=== PATIENT | female | born 1965 | race Two or more races ===

== ENCOUNTER 2017-05-09 10:46 | Emergency (ER) | payer MEDICARE, MEDICAID ==
--- NOTE | 2017-05-09 11:41 | ER Document Report ---
ED General - General Chief Complaint: Urinary Problem Stated Complaint: ABDOMINAL PAIN Time Seen by Provider: 05/09/17 11:24 Mode of Arrival: Ambulatory Information source: Patient Notes: 51-year-old female history of IgA deficiency presents with complaints of sinus tenderness nasal drainage as well as urinary symptoms. Patient believes she passed a kidney stone this morning. She notes she has had a kidney stone since she was 19. Patient denies any fevers or chills denies any nausea vomiting or diarrhea. Patient does note that it valdez after she is done urinating TRAVEL OUTSIDE OF THE [place] IN LAST 30 DAYS: No - HPI Onset: Other - 2-3 day duration Onset/Duration: Intermittent - Intermittent burning on urination, Persistent - Persistent sinus tenderness Quality of pain: Burning, Pressure Severity: Mild Pain Level: 1 Associated symptoms: Other Exacerbated by: Other - Urination Relieved by: Denies Similar symptoms previously: Yes Recently seen / treated by doctor: Yes - Related Data Allergies/Adverse Reactions: amoxicillin [From Augmentin] Allergy (Verified 05/09/17 10:50) baclofen Allergy (Verified 05/09/17 10:50) clavulanic acid [From Augmentin] Allergy (Verified 05/09/17 10:50) gabapentin Allergy (Verified 05/09/17 10:50) Home Medications: Current Home Medications Atorvastatin Calcium [Lipitor 40 mg Tablet] 40 mg PO DAILY 05/09/17 [History] Canagliflozin [Invokana] 1 tab PO QAM 05/09/17 [History] Cyclosporine 0.05% Oph Emulsio [Restasis 0.05% Oph Emulsion Pf 0.4 ml] 1 drop OU DAILY 05/09/17 [History] Hydroxychloroquine Sulfate [Plaquenil 200 mg Tablet] 300 mg PO DAILY 05/09/17 [ History] Metoprolol Succinate [Toprol Xl] 50 mg PO DAILY 05/09/17 [History] Nitroglycerin [Nitroglycerin Patch] 1 each TD DAILY 05/09/17 [History] Valacyclovir HCl [Valacyclovir] 1 tab PO DAILY 05/09/17 [History] Past Medical History - Social History Smoking Status: Never Smoker Cigarette use (# per day): No Chew tobacco use (# tins/day): No Smoking Education Provided: No Frequency of alcohol use: None Drug Abuse: None Family History: Reviewed & Not Pertinent Patient has suicidal ideation: No Patient has homicidal ideation: No - Past Medical History Cardiac Medical History: Reports: Hx Hypercholesterolemia, Hx Hypertension Endocrine Medical History: Reports: Hx Diabetes Mellitus Type 2 Renal/ Medical History: Denies: Hx Peritoneal Dialysis Musculoskeltal Medical History: Reports Hx Arthritis - rheumatoid Past Surgical History: Reports: Hx Cardiac Surgery - cabg, Hx Cholecystectomy, Hx Hysterectomy, Hx Orthopedic Surgery - frozen shoulder-surg to release Review of Systems - Review of Systems Notes: REVIEW OF SYSTEMS: CONSTITUTIONAL : Denies fever, chills, or sweats. Denies recent illness. EENT: Admits sinus tenderness CARDIOVASCULAR: Denies chest pain. Denies palpitations or racing or irregular heart beat. Denies ankle edema. RESPIRATORY: Denies cough, cold, or chest congestion. Denies shortness of breath, difficulty breathing, or wheezing. GASTROINTESTINAL: Denies abdominal pain or distention. Denies nausea, vomiting , or diarrhea. Denies blood in vomitus, stools, or per rectum. Denies black, tarry stools. Denies constipation. GENITOURINARY: Admits to burning on urination FEMALE GENITOURINARY: Denies vaginal bleeding, heavy or abnormal periods, irregular periods. Denies vaginal discharge or odor. MUSCULOSKELETAL: Denies back or neck pain or stiffness. Denies joint pain or swelling. SKIN: Denies rash, lesions or sores. HEMATOLOGIC : Denies easy bruising or bleeding. LYMPHATIC: Denies swollen, enlarged glands. NEUROLOGICAL: Denies confusion or altered mental status. Denies passing out or loss of consciousness. Denies dizziness or lightheadedness. Denies headache. Denies weakness or paralysis or loss of use of either side. Denies problems with gait or speech. Denies sensory loss, numbness, or tingling. Denies seizures. PSYCHIATRIC: Denies anxiety or stress. Denies depression, suicidal ideation, or homicidal ideation. ALL OTHER SYSTEMS REVIEWED AND NEGATIVE. PHYSICAL EXAMINATION: GENERAL: Well-appearing, well-nourished and in no acute distress. HEAD: Atraumatic, normocephalic. EYES: Pupils equal round and reactive to light, extraocular movements intact, conjunctiva are normal. ENT: Nares patent, oropharynx clear without exudates. Moist mucous membranes. There is no tenderness of the mastoid process there is some scarring of the tympanic membranes but no erythema, there is no retraction NECK: Normal range of motion, supple without lymphadenopathy LUNGS: Breath sounds clear to auscultation bilaterally and equal. No wheezes rales or rhonchi. HEART: Regular rate and rhythm without murmurs ABDOMEN: Soft, nontender, nondistended abdomen. No guarding, no rebound. No masses appreciated. Female : deferred Musculoskeletal: Normal range of motion, no pitting or edema. No cyanosis. NEUROLOGICAL: Cranial nerves grossly intact. Normal speech, normal gait. Normal sensory, motor exams PSYCH: Normal mood, normal affect. SKIN: Warm, Dry, normal turgor, no rashes or lesions noted. Dictation was performed using [employer] voice recognition software Physical Exam - Vital signs Vitals: Temp Pulse Resp BP Pulse Ox 98.5 F 76 16 117/80 98 05/09/17 11:03 05/09/17 11:03 05/09/17 11:03 05/09/17 11:03 05/09/17 11:03 Course - Re-evaluation Re-evalutation: 05/09/17 11:41 Probable UTI versus irritation from the stone passing otherwise patient looks well vital signs are stable 05/09/17 15:55 Patient does have a urinary tract infection, I discussed my concerns of infected stone, patient states she has no flank pain no fevers does not believe that she has an infected stone therefore at her request I will just treat her with Bactrim, I explained very strict return precautions as I have concern for an infected stone if symptoms do not improve After performing a Medical Screening Examination, I estimate there is LOW risk for ACUTE APPENDICITIS, BOWEL OBSTRUCTION, ACUTE CHOLECYSTITIS, PERFORATED DIVERTICULITIS, INCARCERATED HERNIA, PANCREATITIS, PELVIC INFLAMMATORY DISEASE, PERFORATED ULCER, ECTOPIC , or TUBO-OVARIAN ABSCESS, thus I consider the discharge disposition reasonable. Also, there is no evidence or peritonitis , sepsis, or toxicity. I have reevaluated this patient multiple times and no significant life threatening changes are noted. The patient and I have discussed the diagnosis and risks, and we agree with discharging home with close follow-up with the understanding that symptoms and presentations can change. We also discussed returning to the Emergency Department immediately if new or worsening symptoms occur. We have discussed the symptoms which are most concerning (e.g., bloody stool, fever, changing or worsening pain, vomiting) that necessitate immediate return. - Vital Signs Vital signs: Temp Pulse Resp BP Pulse Ox 97.5 F 65 16 108/62 100 05/09/17 12:01 05/09/17 12:01 05/09/17 12:01 05/09/17 12:01 05/09/17 12:01 - Laboratory Laboratory results interpreted by me: 05/09/17 11:05 Urine Glucose (UA) >=500 H Urine Blood SMALL H Ur Leukocyte Esterase MODERATE H Discharge - Discharge Clinical Impression: UTI (urinary tract infection) Qualifiers: Urinary tract infection type: acute cystitis Hematuria presence: without hematuria Qualified Code(s): N30.00 - Acute cystitis without hematuria Sinusitis Qualifiers: Sinusitis location: frontal Chronicity: acute Recurrence: non-recurrent Qualified Code(s): J01.10 - Acute frontal sinusitis, unspecified Condition: Stable Disposition: HOME, SELF-CARE Instructions: Trimethoprim-Sulfa ([facility]), Urinary Tract Infection ([facility]) Additional Instructions: Please return immediately if he began having fevers flank pain or any other concerns Prescriptions: Sulfamethoxazole/Trimethoprim [Bactrim Ds Tablet] 1 each PO BID 9 Days tablet
[2017-05-09 11:43] LABS: APPEARANCE,URINE CLEAR; BILIRUBIN,URINE NEGATIVE (NEGATIVE); GLUCOSE, URINE >=500 mg/dL (NEGATIVE); KETONES,URINE NEGATIVE (NEGATIVE); LEUKOCYTE ESTERASE,URINE MODERATE (NEGATIVE); NITRITE,URINE NEGATIVE (NEGATIVE); PROTEIN,URINE NEGATIVE (NEGATIVE); URINE SPECIFIC GRAVITY 1.026; UROBILINOGEN,URINE NEGATIVE mg/dL (<2.0)
[2017-05-09] MEDS ORDERED: SULFAMETHOXAZOLE/TRIMETHOPRIM 800-160 MG TABLET PO ONE (11:52)
[2017-05-09 12:05] VITALS: BP 108/62
== END 2017-05-09 12:02 | disposition home or self-care (01) ==
LOC: ER 10:46
DX: N30.00 Acute cystitis without hematuria (principal); J01.10 Acute frontal sinusitis, unspecified; I10 Essential (primary) hypertension; E11.9 Type 2 diabetes mellitus without complications; Z87.442 Personal history of urinary calculi; Z88.0 Allergy status to penicillin; Z88.6 Allergy status to analgesic agent; Z88.8 Allergy status to other drugs, medicaments and biological substances; Z95.1 Presence of aortocoronary bypass graft
CPT/HCPCS: 99284; 87086; 81025; 87088; 81001; 87186; A9270

== ENCOUNTER 2017-11-13 09:58 | Emergency (ER) | payer MEDICARE, MEDICAID ==
--- NOTE | 2017-11-13 10:31 | ER Document Report ---
ED Medical Screen (RME) - General Chief Complaint: Breathing Difficulty Stated Complaint: COUGH, EAR PAIN Time Seen by Provider: 11/13/17 10:23 Mode of Arrival: Ambulatory Information source: Patient Notes: 52-year-old female history of CABG presents with complaints of one-month duration of cough, chest wall pain after coughing sore throat hoarseness over the past few days with earache Patient denies any DVT PE risk factors, denies any fevers or chills Patient feels like there is drainage gone the back of her throat denies any productivity of cough I have greeted and performed a rapid initial assessment of this patient. A comprehensive ED assessment and evaluation of the patient, analysis of test results and completion of the medical decision making process will be conducted by additional ED providers. PHYSICAL EXAMINATION: GENERAL: Well-appearing, well-nourished and in no acute distress. HEAD: Atraumatic, normocephalic. EYES: Pupils equal round extraocular movements intact, conjunctiva are normal. ENT: Nares patent NECK: Normal range of motion LUNGS: No respiratory distress Musculoskeletal: Normal range of motion NEUROLOGICAL: Normal speech, normal gait. PSYCH: Normal mood, normal affect. SKIN: Warm, Dry, normal turgor, no rashes or lesions noted. TRAVEL OUTSIDE OF THE [place] IN LAST 30 DAYS: No - Related Data Allergies/Adverse Reactions: amoxicillin [From Augmentin] Allergy (Verified 11/13/17 10:25) baclofen Allergy (Verified 11/13/17 10:25) clavulanic acid [From Augmentin] Allergy (Verified 11/13/17 10:25) gabapentin Allergy (Verified 11/13/17 10:25) Past Medical History - Social History Chew tobacco use (# tins/day): No Frequency of alcohol use: None Drug Abuse: None - Past Medical History Cardiac Medical History: Reports: Hx Hypercholesterolemia, Hx Hypertension Endocrine Medical History: Reports: Hx Diabetes Mellitus Type 2 Renal/ Medical History: Denies: Hx Peritoneal Dialysis Musculoskeltal Medical History: Reports Hx Arthritis - rheumatoid Past Surgical History: Reports: Hx Cardiac Surgery - cabg, Hx Cholecystectomy, Hx Hysterectomy, Hx Orthopedic Surgery - frozen shoulder-surg to release Physical Exam - Vital signs Vitals: Temp Pulse Resp BP Pulse Ox 98.1 F 64 16 113/79 96 11/13/17 10:03 11/13/17 10:03 11/13/17 10:03 11/13/17 10:03 11/13/17 10:03 Course - Vital Signs Vital signs: Temp Pulse Resp BP Pulse Ox 98.1 F 64 16 113/79 96 11/13/17 10:03 11/13/17 10:03 11/13/17 10:03 11/13/17 10:03 11/13/17 10:03
--- NOTE | 2017-11-13 11:33 | RADIOLOGY REPORT (SQ) ---
EXAM DESCRIPTION: CHEST 2 VIEWS COMPLETED DATE/TIME: 11/13/2017 11:14 am REASON FOR STUDY: cough congestion 1 month COMPARISON: Two-view chest 03/18/2017 EXAM PARAMETERS: NUMBER OF VIEWS: two views TECHNIQUE: Digital Frontal and Lateral radiographic views of the chest acquired. RADIATION DOSE: NA LIMITATIONS: none FINDINGS: LUNGS AND PLEURA: No opacities, masses or pneumothorax. No pleural effusion. MEDIASTINUM AND HILAR STRUCTURES: No masses or contour abnormalities. HEART AND VASCULAR STRUCTURES: No cardiomegaly. Old sternotomy and CABG BONES: No acute findings. HARDWARE: Clips right upper quadrant post cholecystectomy OTHER: No other significant finding. IMPRESSION: NO ACUTE RADIOGRAPHIC FINDING IN THE CHEST. TECHNICAL DOCUMENTATION: JOB ID: [id number] [employer]- All Rights Reserved Reading location - IP/workstation name: [email or web address]
[2017-11-13] MEDS ORDERED: BENZONATATE 100 MG CAPSULE PO ONE (12:40)
[2017-11-13] MEDS ORDERED: LIDOCAINE 5% (700 MG) TRANSDERMAL ADH..PATCH TP ONE (12:40)
--- NOTE | 2017-11-13 12:49 | ER Document Report ---
ED General - General Chief Complaint: Breathing Difficulty Stated Complaint: COUGH, EAR PAIN Time Seen by Provider: 11/13/17 10:23 Mode of Arrival: Ambulatory TRAVEL OUTSIDE OF THE [place] IN LAST 30 DAYS: No - HPI Patient complains to provider of: Cough and difficulty breathing sinus congestion right ear pain Notes: Patient coming in with above-stated symptoms ongoing for almost a month. Patient states feels like something is in the inside of her right ear. Patient also states multiple sinus symptoms sinus congestion with sinus drainage patient states cough ongoing for approximately 1 month and now losing her voice. Patient is hoarse upon my evaluation patient states she does sleep with before meals and a fan on. Patient states she is tried [id number] Tylenol Sinus medications with no relief currently is on Zyrtec. Denies fevers chills production to cough nausea vomiting diarrhea. Patient denies any chest pain or abdominal pain. Patient denies any recent antibiotics patient states she does have a history of hypertension diabetes - Related Data Allergies/Adverse Reactions: amoxicillin [From Augmentin] Allergy (Verified 11/13/17 10:25) baclofen Allergy (Verified 11/13/17 10:25) clavulanic acid [From Augmentin] Allergy (Verified 11/13/17 10:25) gabapentin Allergy (Verified 11/13/17 10:25) Past Medical History - General Information source: Patient - Social History Smoking Status: Never Smoker Chew tobacco use (# tins/day): No Frequency of alcohol use: None Drug Abuse: None Family History: Reviewed & Not Pertinent Patient has suicidal ideation: No Patient has homicidal ideation: No - Past Medical History Cardiac Medical History: Reports: Hx Hypercholesterolemia, Hx Hypertension Endocrine Medical History: Reports: Hx Diabetes Mellitus Type 2 Renal/ Medical History: Denies: Hx Peritoneal Dialysis Musculoskeltal Medical History: Reports Hx Arthritis - rheumatoid Past Surgical History: Reports: Hx Cardiac Surgery - cabg, Hx Cholecystectomy, Hx Hysterectomy, Hx Orthopedic Surgery - frozen shoulder-surg to release Review of Systems - Review of Systems Constitutional: Other - Cough sinus pressure ear pain EENT: No symptoms reported Cardiovascular: No symptoms reported Respiratory: No symptoms reported Gastrointestinal: No symptoms reported Genitourinary: No symptoms reported Female Genitourinary: No symptoms reported Musculoskeletal: No symptoms reported Skin: No symptoms reported Hematologic/Lymphatic: No symptoms reported Neurological/Psychological: No symptoms reported Physical Exam - Vital signs Vitals: Temp Pulse Resp BP Pulse Ox 98.1 F 64 16 113/79 96 11/13/17 10:03 11/13/17 10:03 11/13/17 10:03 11/13/17 10:03 11/13/17 10:03 Interpretation: Normal - General General appearance: Appears well, Alert - HEENT Head: Normocephalic - Small cyst below the inion on the right no signs of abscess, Atraumatic Eyes: Normal Conjunctiva: Normal Cornea: Normal Extraocular movements intact: Yes Eyelashes: Normal Pupils: PERRL Ears: Normal External canal: Normal Tympanic membrane: Normal Sinus: Normal Nasal: Normal Mouth/Lips: Normal Pharynx: Post nasal drainage Neck: Normal - Respiratory Respiratory status: No respiratory distress Chest status: Nontender Breath sounds: Normal Chest palpation: Normal - Cardiovascular Rhythm: Regular Heart sounds: Normal auscultation Murmur: No - Abdominal Inspection: Normal Distension: No distension Bowel sounds: Normal Tenderness: Nontender Organomegaly: No organomegaly - Back Back: Normal, Nontender - Extremities General upper extremity: Normal inspection, Nontender, Normal color, Normal ROM , Normal temperature General lower extremity: Normal inspection, Nontender, Normal color, Normal ROM , Normal temperature, Normal weight bearing. No: Jemima's sign - Neurological Neuro grossly intact: Yes Cognition: Normal Orientation: AAOx4 Radha Coma Scale Eye Opening: Spontaneous [place] Coma Scale Verbal: Oriented [place] Coma Scale Motor: Obeys Commands Radha Coma Scale Total: 15 Speech: Normal Motor strength normal: LUE, RUE, LLE, RLE Sensory: Normal - Psychological Associated symptoms: Normal affect, Normal mood - Skin Skin Temperature: Warm Skin Moisture: Dry Skin Color: Normal Course - Re-evaluation Re-evalutation: 11/13/17 16:26 Patient with sinus symptoms and laryngitis. Explained to patient that treatment for laryngitis will be resting her voice and treatment of her sinus drainage. Continue the Zyrtec will start patient on Flonase. Patient was also given Tessalon Perles for cough also educated patient about use of honey for cough suppression. No critical pathology seen to patient discharged home - Vital Signs Vital signs: Temp Pulse Resp BP Pulse Ox 97.4 F 58 L 16 123/64 100 11/13/17 13:15 11/13/17 13:15 11/13/17 13:15 11/13/17 13:15 11/13/17 13:15 Discharge - Discharge Clinical Impression: Laryngitis, Allergic sinusitis Condition: Good Disposition: HOME, SELF-CARE Instructions: Laryngitis ([facility]), Nasal Sprays and Drops ([facility]) Additional Instructions: Your physical evaluation today is reveals slight nasal drainage more likely from seasonal allergies. Would recommend continue to take all of your medications. We will also add nasal spray to help out with your symptoms called Flonase. I would also recommend using honey for your cough did not sleep with a fan on in your bedroom. I also gave you a prescription for Tessalon Perles. This may aid in her cough as well He may also try any [id number] cough cold medication Please rest her voice you have laryngitis treatment involves controlling her seasonal allergies along with resting your vocal cords. Return to ER for any other symptoms follow-up with your primary care physician Prescriptions: Benzonatate [Tessalon Perle 100 mg Capsule] 100 mg PO Q8HP PRN #40 cap PRN Reason: Fluticasone Propionate [Flonase Nasal [place] 50 Mcg/[place] 16 gm] 1 spray NASL DAILY #1 inhaler
[2017-11-13 13:15] VITALS: BP 123/64
== END 2017-11-13 13:16 | disposition home or self-care (01) ==
LOC: ER 09:58
DX: J04.0 Acute laryngitis (principal); J30.9 Allergic rhinitis, unspecified; R05 Cough; R09.81 Nasal congestion; H92.01 Otalgia, right ear; R49.0 Dysphonia; I10 Essential (primary) hypertension; E11.9 Type 2 diabetes mellitus without complications
CPT/HCPCS: 99283; 87070; 87880; 71046; A9270

== ENCOUNTER 2018-11-21 19:05 | Emergency (ER) | payer MEDICARE, MEDICAID ==
[2018-11-21] MEDS ORDERED: ONDANSETRON HCL INJ/PF 4 MG/2 ML SDV IV ONE (19:58)
--- NOTE | 2018-11-21 19:59 | ER Document Report ---
ED Medical Screen (RME) - General Chief Complaint: Flank Pain Stated Complaint: BACK PAIN Time Seen by Provider: 11/21/18 19:53 Mode of Arrival: Ambulatory Notes: Patient presents complaining of vaginal pain lower pelvic and low back pain for the past 4 days. Patient reports fever of 101 yesterday. Patient reports nausea and vaginal discharge. Patient has had a total hysterectomy in the past. Patient states she is not been sexually active for 12 years. I have greeted and performed a rapid initial assessment of this patient. A comprehensive ED assessment and evaluation of the patient, analysis of test results and completion of the medical decision making process will be conducted by additional ED providers. TRAVEL OUTSIDE OF THE [place] IN LAST 30 DAYS: No - Related Data Allergies/Adverse Reactions: amoxicillin [From Augmentin] Allergy (Verified 11/21/18 19:19) baclofen Allergy (Verified 11/21/18 19:19) clavulanic acid [From Augmentin] Allergy (Verified 11/21/18 19:19) gabapentin Allergy (Verified 11/21/18 19:19) Past Medical History - Social History Frequency of alcohol use: None Drug Abuse: None - Past Medical History Cardiac Medical History: Reports: Hx Hypercholesterolemia, Hx Hypertension Endocrine Medical History: Reports: Hx Diabetes Mellitus Type 2 Renal/ Medical History: Denies: Hx Peritoneal Dialysis Musculoskeltal Medical History: Reports Hx Arthritis - rheumatoid Past Surgical History: Reports: Hx Cardiac Surgery - cabg, Hx Cholecystectomy, Hx Hysterectomy, Hx Orthopedic Surgery - frozen shoulder-surg to release Physical Exam - Vital signs Vitals: Temp Pulse Resp BP Pulse Ox 98.0 F 73 16 139/82 H 96 11/21/18 19:30 11/21/18 19:30 11/21/18 19:30 11/21/18 19:30 11/21/18 19:30 - Back Back: Tender - Lumbar paraspinal tenderness Course - Vital Signs Vital signs: Temp Pulse Resp BP Pulse Ox 98.0 F 73 16 139/82 H 96 11/21/18 19:30 11/21/18 19:30 11/21/18 19:30 11/21/18 19:30 11/21/18 19:30
[2018-11-21 20:43] LABS: ABSOLUTE EOSINOPHILS # (AUTO) 0.1 10^3/uL (0.0-0.6); ABSOLUTE LYMPHOCYTES (AUTO) 2.5 10^3/uL (0.5-4.7); ABSOLUTE MONOCYTES (AUTO) 0.5 10^3/uL (0.1-1.4); ABSOLUTE NEUT (AUTO) 3.4 10^3/uL (1.7-8.2); BASOPHILS % (AUTO) 0.7 % (0-2); EOSINOPHILS % (AUTO) 1.9 % (0-6); HEMATOCRIT 40.2 % (36.0-47.0); HEMOGLOBIN 13.5 g/dL (12.0-15.5); MEAN CORPUSCULAR HEMOGLOBIN 29.4 pg (27.0-33.4); MEAN CORPUSCULAR HGB CONC 33.6 g/dL (32.0-36.0); MEAN CORPUSCULAR VOLUME 88 fl (80-97); MONOCYTES % (AUTO) 7.4 % (3-13); PLATELET COUNT 343 10^3/uL (150-450); RED BLOOD COUNT 4.59 10^6/uL (3.72-5.28); RED CELL DISTRIBUTION WIDTH 13.9 % (11.5-14.0); TOTAL CELLS COUNTED % (AUTO) 100 %; WHITE BLOOD COUNT 6.6 10^3/uL (4.0-10.5)
[2018-11-21 20:47] LABS: APPEARANCE,URINE CLEAR; BILIRUBIN,URINE NEGATIVE (NEGATIVE); COLOR,URINE STRAW; GLUCOSE, URINE NEGATIVE (NEGATIVE); KETONES,URINE NEGATIVE (NEGATIVE); LEUKOCYTE ESTERASE,URINE NEGATIVE (NEGATIVE); NITRITE,URINE NEGATIVE (NEGATIVE); PROTEIN,URINE NEGATIVE (NEGATIVE); URINE SPECIFIC GRAVITY 1.012; UROBILINOGEN,URINE NEGATIVE mg/dL (<2.0)
[2018-11-21 21:03] LABS: ALANINE AMINOTRANSFERASE 27 U/L (9-52); ALBUMIN 4.7 g/dL (3.5-5.0); ALKALINE PHOSPHATASE 58 U/L (38-126); ANION GAP 10 (5-19); ASPARTATE AMINO TRANSFERASE 31 U/L (14-36); BILIRUBIN,DIRECT 0.3 mg/dL (0.0-0.4); BILIRUBIN,TOTAL 0.4 mg/dL (0.2-1.3); BLOOD UREA NITROGEN 15 mg/dL (7-20); CALCIUM 9.9 mg/dL (8.4-10.2); CARBON DIOXIDE 28 mmol/L (22-30); CHLORIDE 103 mmol/L (98-107); GLUCOSE 85 mg/dL (75-110); POTASSIUM 4.9 mmol/L (3.6-5.0); SODIUM 140.5 mmol/L (137-145); TOTAL PROTEIN 8.3 g/dL (6.3-8.2)
[2018-11-21 22:23] LABS: CHLAM PCR NOT DETECTED (NOT DETECT)
[2018-11-21] MEDS ORDERED: IBUPROFEN 600 MG TABLET PO ONE (22:39)
[2018-11-22 00:20] LABS: BACTERIA (WET MOUNT) 3+ BACTERIA SEEN; EPITHELIALS (WET MOUNT) 3+ EPITHELIALS SEEN; RBCS (WET MOUNT) RARE RBCS SEEN; T.VAGINALIS (WET MOUNT) NO TRICHOMONAS SEEN; WBCS (WET MOUNT) 1+ WBCS SEEN; YEAST (WET MOUNT) NO YEAST SEEN
--- NOTE | 2018-11-22 00:49 | ER Document Report ---
ED General - General Chief Complaint: Flank Pain Stated Complaint: BACK PAIN Time Seen by Provider: 11/21/18 19:53 Mode of Arrival: Ambulatory Information source: Patient TRAVEL OUTSIDE OF THE [place] IN LAST 30 DAYS: No - HPI Notes: Patient with a history of diabetes, hypercholesterolemia, coronary bypass surgery, cholecystectomy, hysterectomy 1987 related to endometriosis with bilateral oophorectomy and recurrent yeast infections presents with report of lower back pain with some vaginal fluid and mild nausea. The patient reports pelvic pain and questions having a fever previously. No constipation or diarrhea or chest pain or shortness of breath or cough or congestion or difficulty breathing. - Related Data Allergies/Adverse Reactions: amoxicillin [From Augmentin] Allergy (Verified 11/21/18 19:19) baclofen Allergy (Verified 11/21/18 19:19) clavulanic acid [From Augmentin] Allergy (Verified 11/21/18 19:19) gabapentin Allergy (Verified 11/21/18 19:19) Past Medical History - General Information source: Patient - Social History Smoking Status: Never Smoker Frequency of alcohol use: None Drug Abuse: None Lives with: Alone Family History: Reviewed & Not Pertinent Patient has suicidal ideation: No Patient has homicidal ideation: No - Past Medical History Cardiac Medical History: Reports: Hx Hypercholesterolemia, Hx Hypertension Endocrine Medical History: Reports: Hx Diabetes Mellitus Type 2 Renal/ Medical History: Denies: Hx Peritoneal Dialysis Musculoskeletal Medical History: Reports Hx Arthritis - rheumatoid Past Surgical History: Reports: Hx Cardiac Surgery - cabg, Hx Cholecystectomy, Hx Hysterectomy, Hx Orthopedic Surgery - frozen shoulder-surg to release Review of Systems - Review of Systems -: Yes All other systems reviewed and negative Physical Exam - Vital signs Vitals: Temp Pulse Resp BP Pulse Ox 98.0 F 73 16 139/82 H 96 11/21/18 19:30 11/21/18 19:30 11/21/18 19:30 11/21/18 19:30 11/21/18 19:30 - Notes Notes: PHYSICAL EXAMINATION: GENERAL: Well-appearing, well-nourished and in no acute distress. HEAD: Atraumatic, normocephalic. EYES: Pupils equal round and reactive to light, extraocular movements intact, conjunctiva are normal. ENT: Nares patent, oropharynx clear without exudates. Moist mucous membranes. NECK: Normal range of motion, supple without lymphadenopathy LUNGS: Breath sounds clear to auscultation bilaterally and equal. No wheezes rales or rhonchi. HEART: Regular rate and rhythm without murmurs ABDOMEN: Soft, nondistended abdomen. No guarding, no rebound. No masses appreciated. Mild tenderness appreciated through the lower midline pelvis region. surgical scars well-healed from previous hysterectomy. Female : External female genitalia hypo-estrogenized with minimal nonodorous discharge. No erythema or cellulitis or abscess. No lesions noted on speculum exam and no evidence for fistula or mass or other abnormality besides a mild discharge. Rectal exam no obvious bleeding or significant constipation. No fissure or abscess. Musculoskeletal: Normal range of motion, no pitting or edema. No cyanosis. NEUROLOGICAL: Cranial nerves grossly intact. Normal speech, normal gait. Normal sensory, motor exams PSYCH: Normal mood, normal affect. SKIN: Warm, Dry, normal turgor, no rashes or lesions noted. Course - Re-evaluation Re-evalutation: 11/22/18 01:27 Patient had mild evidence for UTI. She was given Bactrim and a urine culture was obtained. Patient showed evidence for bacterial vaginosis and will be covered with Flagyl. There is no obvious yeast infection noted. No evidence for diabetic complication or sepsis or systemic infection or GI bleed. - Vital Signs Vital signs: Temp Pulse Resp BP Pulse Ox 97.6 F 80 18 142/84 H 98 11/22/18 01:26 11/22/18 01:26 11/22/18 01:26 11/22/18 01:26 11/22/18 01:26 - Laboratory Result Diagrams: 11/21/18 20:15 11/21/18 20:15 Laboratory results interpreted by me: 11/21/18 20:15 Total Protein 8.3 H Discharge - Discharge Clinical Impression: Bacterial vaginosis Urinary tract infection Qualifiers: Urinary tract infection type: acute cystitis Hematuria presence: without hematuria Qualified Code(s): N30.00 - Acute cystitis without hematuria Condition: Stable Disposition: HOME, SELF-CARE Instructions: Trimethoprim-Sulfa ([facility]), Urinary Tract Infection ([facility]), Vaginosis, Bacterial ([facility]) Additional Instructions: Drink plenty of fluids. Watch your blood sugars closely. If you feel you are having a yeast infection, then take the fluconazole. Prescriptions: Ibuprofen [Motrin 600 mg Tablet] 600 mg PO Q8HP PRN #30 tablet PRN Reason: Ondansetron [Zofran Odt 4 mg Tablet] 1 tab PO Q8HP PRN #10 tab.rapdis PRN Reason: For Nausea/Vomiting Fluconazole [Diflucan] 150 mg PO ONCEP PRN #1 tablet PRN Reason: Metronidazole [Flagyl 500 mg Tablet] 500 mg PO BID #14 tablet Sulfamethoxazole/Trimethoprim [Bactrim Ds Tablet] 1 each PO BID #10 tablet
[2018-11-22] MEDS ORDERED: SULFAMETHOXAZOLE/TRIMETHOPRIM 800-160 MG TABLET PO ONE (01:23)
[2018-11-22] MEDS ORDERED: METRONIDAZOLE 500 MG TABLET PO ONE (01:24)
[2018-11-22 01:27] VITALS: BP 142/84
== END 2018-11-22 01:44 | disposition home or self-care (01) ==
LOC: ER 19:05
DX: N30.00 Acute cystitis without hematuria (principal); N76.0 Acute vaginitis; B96.89 Other specified bacterial agents as the cause of diseases classified elsewhere; R10.9 Unspecified abdominal pain; M54.9 Dorsalgia, unspecified; E11.9 Type 2 diabetes mellitus without complications; M54.5 Low back pain; R11.0 Nausea; R10.2 Pelvic and perineal pain; I10 Essential (primary) hypertension
CPT/HCPCS: 99284; 96374; 36415; 87086; 87210; 85025; 80053; 81001; 87491; 87591; A9270 ×3; J2405

== ENCOUNTER 2019-02-03 11:16 | Emergency (ER) | payer MEDICARE, MEDICAID ==
[2019-02-03] MEDS ORDERED: ONDANSETRON 4 MG TAB.RAPDIS PO ONE (11:26)
--- NOTE | 2019-02-03 11:32 | ER Document Report ---
ED Medical Screen (RME) - General Chief Complaint: Headache Stated Complaint: HEARING PROBLEM Time Seen by Provider: 02/03/19 11:26 Mode of Arrival: Wheelchair Information source: Patient Notes: This patient presents to the emergency department with complaints of congestion in both ears. Woke up this morning with left ear pain and cannot hear. Reports she feels nauseated and dizzy. Denies trauma to her ear. Patient is very emotional very anxious. I have greeted and performed a rapid initial assessment of this patient. A comprehensive ED assessment and evaluation of the patient, analysis of test results and completion of the medical decision making process will be conducted by additional ED providers. Dictation of this chart was performed using voice recognition software; there fore, there may be some unintended grammatical errors. TRAVEL OUTSIDE OF THE [place] IN LAST 30 DAYS: No - Related Data Allergies/Adverse Reactions: amoxicillin [From Augmentin] Allergy (Verified 11/21/18 19:19) baclofen Allergy (Verified 11/21/18 19:19) clavulanic acid [From Augmentin] Allergy (Verified 11/21/18 19:19) gabapentin Allergy (Verified 11/21/18 19:19) Past Medical History - Past Medical History Cardiac Medical History: Reports: Hx Hypercholesterolemia, Hx Hypertension Endocrine Medical History: Reports: Hx Diabetes Mellitus Type 2 Renal/ Medical History: Denies: Hx Peritoneal Dialysis Musculoskeltal Medical History: Reports Hx Arthritis - rheumatoid Past Surgical History: Reports: Hx Cardiac Surgery - cabg, Hx Cholecystectomy, Hx Hysterectomy, Hx Orthopedic Surgery - frozen shoulder-surg to release
[2019-02-03 12:08] LABS: ABSOLUTE EOSINOPHILS # (AUTO) 0.1 10^3/uL (0.0-0.6); ABSOLUTE LYMPHOCYTES (AUTO) 1.8 10^3/uL (0.5-4.7); ABSOLUTE MONOCYTES (AUTO) 0.4 10^3/uL (0.1-1.4); ABSOLUTE NEUT (AUTO) 4.2 10^3/uL (1.7-8.2); BASOPHILS % (AUTO) 0.4 % (0-2); EOSINOPHILS % (AUTO) 1.2 % (0-6); HEMATOCRIT 41.3 % (36.0-47.0); HEMOGLOBIN 13.9 g/dL (12.0-15.5); LYMPHOCYTES % (AUTO) 28.2 % (13-45); MEAN CORPUSCULAR HEMOGLOBIN 29.8 pg (27.0-33.4); MEAN CORPUSCULAR HGB CONC 33.7 g/dL (32.0-36.0); MEAN CORPUSCULAR VOLUME 88 fl (80-97); MONOCYTES % (AUTO) 6.5 % (3-13); PLATELET COUNT 312 10^3/uL (150-450); RED BLOOD COUNT 4.67 10^6/uL (3.72-5.28); RED CELL DISTRIBUTION WIDTH 13.1 % (11.5-14.0); SEGMENTED NEUTROPHILS % (AUTO) 63.7 % (42-78); TOTAL CELLS COUNTED % (AUTO) 100 %; WHITE BLOOD COUNT 6.5 10^3/uL (4.0-10.5)
[2019-02-03 12:18] LABS: ALBUMIN 4.5 g/dL (3.5-5.0); ALKALINE PHOSPHATASE 69 U/L (38-126); ANION GAP 10 (5-19); ASPARTATE AMINO TRANSFERASE 26 U/L (14-36); BILIRUBIN,DIRECT 0.1 mg/dL (0.0-0.4); BILIRUBIN,TOTAL 0.4 mg/dL (0.2-1.3); BLOOD UREA NITROGEN 17 mg/dL (7-20); CALCIUM 9.8 mg/dL (8.4-10.2); CARBON DIOXIDE 26 mmol/L (22-30); CHLORIDE 102 mmol/L (98-107); CREATINE KINASE 131 U/L (30-135); GLUCOSE 117 mg/dL (75-110); POTASSIUM 4.4 mmol/L (3.6-5.0); TOTAL PROTEIN 7.8 g/dL (6.3-8.2)
[2019-02-03] MEDS ORDERED: DOCUSATE SODIUM 100 MG CAPSULE LFT_EAR ONE (12:31)
[2019-02-03] MEDS ORDERED: BUTALB/ACETAMINOPHEN/CAFFEINE 1 TAB EACH PO ONE (12:40)
[2019-02-03] MEDS ORDERED: DOXYCYCLINE HYCLATE 100 MG TABLET PO ONE (12:40)
--- NOTE | 2019-02-03 13:30 | ER Document Report ---
ED General - General Chief Complaint: Headache Stated Complaint: HEARING PROBLEM Time Seen by Provider: 02/03/19 11:26 Mode of Arrival: Wheelchair TRAVEL OUTSIDE OF THE [place] IN LAST 30 DAYS: No - HPI Notes: This is a 53-year-old female who presents today with a complaint of sinus congestion, sneezing, rhinorrhea, ear ache and difficulty hearing out of the left ear. Patient states her symptoms have been going for about a week. Patient states that her ears feel full and hurt. She states that this morning, she was having trouble hearing out of the left ear. She also describes slight dizziness. Patient states that the ear ache makes the side of her head to hurt also. She denies any fever or chills. She denies any neck pain or stiffness. She describes her symptoms as moderate. There are no obvious aggravating or relieving factors. - Related Data Allergies/Adverse Reactions: amoxicillin [From Augmentin] Allergy (Verified 11/21/18 19:19) baclofen Allergy (Verified 11/21/18 19:19) clavulanic acid [From Augmentin] Allergy (Verified 11/21/18 19:19) gabapentin Allergy (Verified 11/21/18 19:19) Past Medical History - General Information source: Patient - Social History Smoking Status: Never Smoker Frequency of alcohol use: None Drug Abuse: None Family History: Reviewed & Not Pertinent Patient has suicidal ideation: No Patient has homicidal ideation: No - Past Medical History Cardiac Medical History: Reports: Hx Hypercholesterolemia, Hx Hypertension Endocrine Medical History: Reports: Hx Diabetes Mellitus Type 2 Renal/ Medical History: Denies: Hx Peritoneal Dialysis Musculoskeletal Medical History: Reports Hx Arthritis - rheumatoid Past Surgical History: Reports: Hx Cardiac Surgery - cabg, Hx Cholecystectomy, Hx Hysterectomy, Hx Orthopedic Surgery - frozen shoulder-surg to release Review of Systems - Review of Systems EENT: Ear pain, Nose pain, Nose congestion, Sinus pressure, Sinus discharge, Vertigo Cardiovascular: denies: Chest pain Gastrointestinal: denies: Abdominal pain, Diarrhea, Nausea -: Yes All other systems reviewed and negative Physical Exam - Vital signs Vitals: Temp Pulse Resp BP Pulse Ox 97.8 F 95 18 151/107 H 100 02/03/19 11:22 02/03/19 11:22 02/03/19 11:22 02/03/19 11:22 02/03/19 11:22 - General General appearance: Appears well, Alert - HEENT Head: Normocephalic, Atraumatic Eyes: Normal Pupils: PERRL External canal: Normal Tympanic membrane: Bulging - There is bulging and slight erythema of the left ear canal/tm. There appears to be either wax or simply swelling which is obstructing the tympanic membranes. I do not see any foreign body. I tried to clean with Q-tip but did not get any wax. So I think this might be an inflammatory process going on which is causing obstruction hence loss of urine on the left ear. Sinus: Tenderness - There is paranasal sinus tenderness. - Respiratory Respiratory status: No respiratory distress Chest status: Nontender Breath sounds: Normal Chest palpation: Normal - Cardiovascular Rhythm: Regular Heart sounds: Normal auscultation Murmur: No - Skin Skin Temperature: Warm Skin Moisture: Dry Skin Color: Normal Course - Re-evaluation Re-evalutation: 02/03/19 13:30 Clinical picture is consistent with sinusitis and probable left otitis media. Nurses were unable to irrigate anything out of the left ear. I do not think there was cerumen impaction. I think this is likely inflammatory and infectious. We will refer her to ENT. There is no clinical suspicion for intracranial pathology. There is no indication for imaging. - Vital Signs Vital signs: Temp Pulse Resp BP Pulse Ox 97.8 F 95 18 151/107 H 100 02/03/19 11:22 02/03/19 11:22 02/03/19 11:22 02/03/19 11:22 02/03/19 11:22 - Laboratory Result Diagrams: 02/03/19 11:50 02/03/19 11:50 Laboratory results interpreted by me: 02/03/19 11:50 Glucose 117 H Discharge - Discharge Clinical Impression: Acute bacterial sinusitis, Otalgia of both ears Left ear hearing loss Qualifiers: Hearing loss type: unspecified Qualified Code(s): H91.92 - Unspecified hearing loss, left ear Condition: Good Disposition: HOME, SELF-CARE Instructions: Sinusitis ([facility]), Otitis Media ([facility]) Prescriptions: Doxycycline Monohydrate 100 mg PO BID #20 capsule Butalb/Acetaminophen/Caffeine [Fioricet 50-300-40 mg Capsule] 1 cap PO Q4 PRN #20 cap PRN Reason: for pain Referrals: EMILY WARREN DO [ASSOCIATE] - (Call on Tuesday to schedule appointment)
[2019-02-03 14:17] VITALS: BP 142/81
[2019-02-03 14:26] LABS: APPEARANCE,URINE CLEAR; BILIRUBIN,URINE NEGATIVE (NEGATIVE); COLOR,URINE STRAW; GLUCOSE, URINE NEGATIVE (NEGATIVE); KETONES,URINE NEGATIVE (NEGATIVE); LEUKOCYTE ESTERASE,URINE NEGATIVE (NEGATIVE); NITRITE,URINE NEGATIVE (NEGATIVE); PROTEIN,URINE NEGATIVE (NEGATIVE); URINE SPECIFIC GRAVITY 1.008; UROBILINOGEN,URINE NEGATIVE mg/dL (<2.0)
--- NOTE | 2019-02-03 22:11 | EKG REPORT ---
SEVERITY:- NORMAL ECG - SINUS RHYTHM : Confirmed by: Fermin Arenas MD 03-Feb-2019 22:10:07
== END 2019-02-03 14:25 | disposition home or self-care (01) ==
LOC: ER 11:16
DX: J01.10 Acute frontal sinusitis, unspecified (principal); B96.89 Other specified bacterial agents as the cause of diseases classified elsewhere; H91.92 Unspecified hearing loss, left ear; H92.03 Otalgia, bilateral; R09.81 Nasal congestion; R06.7 Sneezing; J34.89 Other specified disorders of nose and nasal sinuses; R42 Dizziness and giddiness; I10 Essential (primary) hypertension; E11.9 Type 2 diabetes mellitus without complications; Z88.0 Allergy status to penicillin; Z88.6 Allergy status to analgesic agent; Z88.8 Allergy status to other drugs, medicaments and biological substances
CPT/HCPCS: 93005; 36415; 82550; 85025; 80053; 81001; 93010; A9270 ×4; 99284; J3490; S0119

== ENCOUNTER → 2019-02-08 | Outpatient (CLI) | payer MEDICARE, MEDICAID ==
--- NOTE | 2019-02-08 11:45 | RADIOLOGY REPORT (SQ) ---
EXAM DESCRIPTION: CT SINUSES FOR ENT COMPLETED DATE/TIME: 02/08/2019 11:00 am REASON FOR STUDY: ACUTE RECURRENT SINUSITIS (J01.91) J01.91 ACUTE RECURRENT SINUSITIS, UNSPECIFIED COMPARISON: None. TECHNIQUE: Noncontrast scanning through the paranasal sinuses using bone algorithm. Reconstructed MPR images reviewed. All images stored on PACS. All CT scanners at this facility use dose modulation, iterative reconstruction, and/or weight based d osing when appropriate to reduce radiation dose to as low as reasonably achievable (ALARA). [facility]: Dose Right [facility]: CareDose [facility]: Dose Right [facility]: Teradose 4D [facility]: Smart Inaika RADIATION DOSE: CT Rad equipment meets quality standard of care and radiation dose reduction techniq ues were employed. CTDIvol: 47.0 mGy. DLP: 1024 mGy-cm.mGy. LIMITATIONS: None. FINDINGS: Right sinuses and drainage pathways: Post-surgical changes: None. Frontal sinus: Normal. Frontoethmoidal Recess: Normal. Anterior Ethmoid Sinuses: Normal. Posterior Ethmoid Sinuses: Normal. Sphenoid Sinus: Normal. Sphenoethmoidal Recess: Normal. Maxillary Sinus: Diffusely small developmentally. Ostiomeatal Complex: Under developed medial wall right maxillary sinus, with patent maxillary sinus outlet. None developed uncinate process right maxillary sinus. Mucous membrane thickening right lat eral wall and floor of the maxillary sinus. This is best shown on coronal images 118-138. Left Sinuses and Drainage Pathways: Post-Surgical Changes: None. Frontal Sinus: Normal. Frontoethmoidal Recess: Normal. Anterior Ethmoid Sinuses: Normal. Posterior Ethmoid Sinuses: Normal. Sphenoid Sinus: Normal. Sphenoethmoidal Recess: Normal. Maxillary Sinus: Normal. Ostiomeatal Complex: Normal. Right Olfactory Fossa: No polyps. Left Olfactory Fossa: No polyps. Middle Turbinate Marguerite Bullosa: No. Paradoxical Middle Turbinate: No. Atelectatic Uncinated Process: No. Frontal Imelda Cell Type I: No. Frontal Imelda Cell Type II: No. Interfrontal Sinus Septal Cell: None. Suptra-Orbital Ethmoid: None Frontal Bullar Cell: None. Suprabullar Bullar Cell: None. Sphenoethmoidal ([place]) Cell: None. Pneumatization of the Anterior Clinoid Processes: No Hypoplastic Maxillary Sinus: On the right Osteoneogenesis: None. Bone Dehiscence:None. Nasal Cavity: Normal. Nasal Septum: Midline Anatomic Variants: Right Vidian Canal: Normal. Left Vidian Canal: Normal. 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 Patent right maxillary sinus outlet with non development of the uncinate process TECHNICAL DOCUMENTATION: JOB ID: [id number] Quality ID # [id number]: Final reports with documentation of one or more dose reduction techniques (e.g., Au tomated exposure control, adjustment of the mA and/or kV according to patient size, use of iterative reconstruction technique) 2010 [employer]- All Rights Reserved Reading location - IP/workstation name: [email or web address]
== END ==
LOC: RAD 10:00
PROVIDERS: ATTEND Otolaryngology
DX: J01.91 Acute recurrent sinusitis, unspecified (principal)
CPT/HCPCS: 70486

== ENCOUNTER → 2019-02-08 | Outpatient (CLI) | payer MEDICARE, MEDICAID | LOC: OD 09:28 | PROVIDERS: ATTEND Otolaryngology | DX: J30.9 Allergic rhinitis, unspecified (principal) | CPT/HCPCS: 36415; 82785; 86003 ==

== ENCOUNTER 2019-12-17 12:25 | Emergency (ER) | payer MEDICARE, MEDICAID ==
[2019-12-17 12:55] VITALS: BP 152/91
--- NOTE | 2019-12-17 13:55 | ER Document Report ---
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 Reports some numbness and tingling in this region. Reports approximately a week ago she cut the anterior portion of the left lower leg while shaving did develop some bruising around this which is slowly resolving. She specifically denies calf pain no chest pain shortness of breath. She has not had any fevers. ROS: See HPI - all other systems were reviewed and are otherwise negative Constitutional: no fever Eyes: no drainage, no blurred vision ENT: no runny nose, no sore throat Cardiovascular: no chest pain Resp: no SOB, no cough GI: no vomiting, no diarrhea, no abdominal pain : no dysuria Integumentary: no rash Allergy: no hives Musculoskeletal: + extremity pain or swelling Neurological: no numbness/tingling, no weakness MEDICATIONS: I agree with the patient medications as charted by the RN. ALLERGIES: I agree with the allergies as charted by the RN. PAST MEDICAL HISTORY/PAST SURGICAL HISTORY: Reviewed and agree as charted by RN. SOCIAL HISTORY: Reviewed and agree as charted by RN. FAMILY HISTORY: No significant familial comorbid conditions directly related to patient complaint EXAM: Reviewed vital signs as charted by RN. CONSTITUTIONAL: Alert and oriented and responds appropriately to questions. Well-appearing; well-nourished HEAD: Normocephalic; atraumatic EYES: Conjunctivae clear, sclerae non-icteric ENT: normal nose; no rhinorrhea; moist mucous membranes NECK: Supple without meningismus CARD: symmetric distal pulses RESP: Normal chest excursion without splinting or tachypnea ABD/GI: non-distended. BACK: The back appears normal EXT: Normal ROM in all joints; no cyanosis, no effusions, no edema. Mild tenderness through the left gluteal region into the lateral aspect of the left thigh and lateral left calf. No visible swelling of the leg SKIN: Normal color for age and race; warm; dry; good turgor; there is a small bruised area with a small cut that does not have any cellulitic plant changer the anterior left lower leg. NEURO: Moves all extremities equally; Motor and sensory function intact PSYCH: The patient's mood and manner are appropriate. Grooming and personal hygiene are appropriate. MDM: 54-year-old female with what appears to be sciatic symptoms. I do not be lieve this is related to the cut she had on the anterior portion of the leg a week ago. There is no cellulitic changes suggest need for infection at this time. Patient has no saddle anesthesia suggesting cauda equina. Discussed at length with the patient. Did offer imaging and labs but patient would prefer treatment with a course of Decadron and will follow up with orthopedics return if symptoms worsen - REPRODUCTIVE Reproductive: DENIES: : Past Medical History - Social History Smoking Status: Never Smoker Chew tobacco use (# tins/day): No Frequency of alcohol use: None Drug Abuse: None Family History: Reviewed & Not Pertinent Patient has homicidal ideation: No - Past Medical History Cardiac Medical History: Reports: Hx Hypercholesterolemia, Hx Hypertension Endocrine Medical History: Reports: Hx Diabetes Mellitus Type 2 Renal/ Medical History: Denies: Hx Peritoneal Dialysis Musculoskeletal Medical History: Reports Hx Arthritis - rheumatoid Past Surgical History: Reports: Hx Cardiac Surgery - cabg, Hx Cholecystectomy, Hx Hysterectomy, Hx Orthopedic Surgery - frozen shoulder-surg to release Vertical Provider Document - INFECTION CONTROL TRAVEL OUTSIDE OF THE [place] IN LAST 30 DAYS: No Course - Vital Signs Vital signs: Temp Pulse Resp BP Pulse Ox 98.6 F 86 16 152/91 H 96 12/17/19 12:48 12/17/19 12:48 12/17/19 12:48 12/17/19 12:48 12/17/19 12:48 Discharge - Discharge Clinical Impression: Sciatica, left side Condition: Stable Disposition: HOME, SELF-CARE Instructions: Sciatica ([facility]) Additional Instructions: Take the Decadron as prescribed. Follow-up with both your primary care provider and orthopedics for further evaluation and treatment call for appointment. If y ou develop worsening or uncontrolled pain swelling of the leg or fever return for reevaluation Prescriptions: Dexamethasone [Decadron 4 Mg Tablet] 4 mg PO DAILY #7 tablet Referrals: EMILY WARREN DO [Primary Care Provider] - Follow up as needed ROBERTO MATHEWS DO [ACTIVE STAFF] - Follow up as needed
== END 2019-12-17 14:06 | disposition home or self-care (01) ==
LOC: ER 12:25
DX: M54.32 Sciatica, left side (principal); M25.552 Pain in left hip; M79.605 Pain in left leg; E78.00 Pure hypercholesterolemia, unspecified; I10 Essential (primary) hypertension; E11.9 Type 2 diabetes mellitus without complications; Z95.1 Presence of aortocoronary bypass graft
CPT/HCPCS: 99283

== ENCOUNTER → 2019-12-17 | Outpatient (CLI) | payer MEDICARE, MEDICAID ==
[2019-12-17 15:25] VITALS: BP 141/80
--- NOTE | 2019-12-17 15:25 | ER RDC ASSESSMENT REPORT ---
Intake - In the Last 14 days Have you traveled outside [place]?: No Have you been in close contact with someone CONFIRMED: No Worked in Healthcare?: No - Symptoms Subjective Fever([place]urgess feverish): No Chills: No Muscule Aches: No Runny Nose: Yes Sore Throat: No Cough (New or worsening chronic cough): Yes Shortness of breath: No Nausea or Vomiting: Yes Headache: Yes Abdominal Pain: Yes Diarrhea(3 or more loose stools in last 24 hours): Yes - Do you have any of the following Chronic lung disease: Asthma or emphysema or COPD: No Cystic Fibrosis: No Diabetes: Yes High Blood Pressure: Yes Cardiovascular Disease: Yes Chronic Kidney Disease: No Chronic Liver Disease: No Chronic blood disorder like Sickle Cell Disease: No Weak immune system due to disease or medication: Yes Neurologic condition that limits movement: No Developmental delay - Moderate to Severe: No Recent (within past 2 weeks) or current : No Morbid Obesity (>100 pounds over ideal weight): No - Objective Temperature: 96.5 F Pulse Rate: 86 Respiratory Rate: 14 Blood Pressure: 141/80 O2 Sat by Pulse Oximetry: 99 Objective: Given above, testing performed: covid Disposition: Home; Selfcare General - General Chief Complaint: Other Time Seen by Provider: 12/17/19 14:50 Mode of Arrival: Ambulatory Information source: Patient - HPI Notes: 54-year-old female presents to [facility] clinic for COVID-19 testing. Patient reports no known exposure to COVID-19 positive individual. She does have a significant medical history of type 2 diabetes, rheumatoid arthritis, and previous open heart surgery for coronary anomaly. Patient had does have some mild symptoms but believes it may be related more to seasonal allergies. She is currently complaining of runny nose and occasional cough. She does report some GI upset that occurred several weeks ago but has since resolved. She is denying any fever, chills, muscle ache, sore throat, shortness of breath, or GI upset at this time. - Related Data Allergies/Adverse Reactions: clavulanic acid [From Augmentin] Allergy (Severe, Verified 12/17/19 13:34) VOMITING baclofen Allergy (Verified 12/17/19 13:34) Hallucinations gabapentin Allergy (Verified 12/17/19 13:34) Hallucinations amoxicillin [From Augmentin] Adverse Reaction (Severe, Verified 12/17/19 13:34) VOMITING Past Medical History - General Information source: Patient - Social History Smoking Status: Never Smoker Family History: Reviewed & Not Pertinent - Past Medical History Cardiac Medical History: Reports: Hx Hypercholesterolemia, Hx Hypertension, Other Pulmonary Medical History: Reports: None EENT Medical History: Reports: None Neurological Medical History: Reports: None Endocrine Medical History: Reports: Hx Diabetes Mellitus Type 2 Renal/ Medical History: Reports: None. Denies: Hx Peritoneal Dialysis Malignancy Medical History: Reports: None GI Medical History: Reports: None Musculoskeletal Medical History: Reports Hx Arthritis - rheumatoid Skin Medical History: Reports None Psychiatric Medical History: Reports: None Traumatic Medical History: Reports: None Infectious Medical History: Reports: None Past Surgical History: Reports: Hx Cardiac Surgery - cabg, Hx Cholecystectomy, Hx Hysterectomy, Hx Orthopedic Surgery - frozen shoulder-surg to release Physical Exam - General General appearance: Appears well, Alert In distress: None Notes: PHYSICAL EXAMINATION: GENERAL: Well-appearing and in no acute distress. HEAD: Atraumatic, normocephalic. EYES: sclera anicteric, conjunctiva are normal. ENT: nares patent. Moist mucous membranes. NECK: Normal range of motion, supple without lymphadenopathy. LUNGS: No increased work of breathing. Lung sounds CTAB and equal. No wheezes rales or rhonchi. HEART: Regular rate and rhythm without murmurs. ABDOMEN: Soft, nontender, normal bowel sounds, no guarding. EXTREMITIES: Normal range of motion, no pitting edema. No cyanosis. NEUROLOGICAL: A&O x 3. Normal speech. PSYCH: Normal mood, normal affect. SKIN: Warm, Dry, normal turgor, no rashes or lesions noted Diagnostic Results Laboratory Results: COVID-19 pending Patient Education/Counseling Counseling/Education: Patient presents with symptoms associated with possible Covid 19 infection. Patient does not have emergency worrying symptoms such as difficulty breathing, shortness of breath, chest pain, pressure, confusion or cyanosis. Patient appears suitable for discharge as vital signs are stable and patient is nontoxic in appearance. Good return precautions have been discussed with patient, patient verbalized understanding and is agreeable with discharge plan of care at this time. Guidance for worsening S/SX: As a person under investigation for Covid 19, the [facility] of Health and Human Services, division of public health advises you to adhere to the following guidance until your test results are reported to you. If your test result is positive, you will receive additional information from your provider and your local health department at that time. Remain at home until you are cleared by the health provider or public health authorities. Keep a log of visitors to your home, notify any visitors to your home of your isolation status. If you plan to move to a new address or leave the county, notify the local health department in your County. Call your doctor or seek care if you have an urgent medical need. Before seeking medical care, call ahead to get instructions from the provider before arriving at the medical office clinic or hospital. Notify them that you are being tested for the virus that causes Covid 19 so that arrangements can be made, as necessary, to prevent transmission to others in the healthcare setting. Next, notify the local health department in your county. If a medical emergency arises and you need to call 911, inform the first responders that you are being tested for the virus that causes Covid 19. Next, notify the local health department in your county. RDC Discharge - Discharge Clinical Impression: Encounter for screening laboratory testing for COVID-19 virus Condition: Good Disposition: Home; Selfcare -
== END ==
LOC: RDC 14:18
PROVIDERS: ATTEND Registered Nurse
DX: Z20.828 Contact with and (suspected) exposure to other viral communicable diseases (principal); R05 Cough; R09.89 Other specified symptoms and signs involving the circulatory and respiratory systems; R11.0 Nausea; R51 Headache; R10.9 Unspecified abdominal pain; R19.7 Diarrhea, unspecified; I10 Essential (primary) hypertension; E78.00 Pure hypercholesterolemia, unspecified; E11.9 Type 2 diabetes mellitus without complications; M06.9 Rheumatoid arthritis, unspecified; Z88.1 Allergy status to other antibiotic agents; Z88.6 Allergy status to analgesic agent; Z88.8 Allergy status to other drugs, medicaments and biological substances
CPT/HCPCS: U0003; C9803; 87635

== ENCOUNTER 2020-03-07 16:53 | Emergency (ER) | payer MEDICARE, MEDICAID ==
--- NOTE | 2020-03-07 17:23 | ER Document Report ---
ED Medical Screen (RME) - General Chief Complaint: Vaginal Discharge Stated Complaint: VAGINAL PROBLEM Time Seen by Provider: 03/07/20 17:16 Primary Care Provider: CHARLES MAHARAJ [Primary Care Provider] - Follow up as needed Mode of Arrival: Ambulatory Information source: Patient Notes: HPI; 54-year-old female presents emergency room complaining of vaginal discharge and vaginal pain with burning for the past week. Patient states she had a bout of diarrhea approximately 2 weeks ago that she had cleaned herself well but is concerned that some of the stool may have gotten to her vaginal area. States she started having itching and discharge so she used [id number] Monistat without relief. States symptoms have not gotten progressively worse. Including dysuria. Status post hysterectomy. Denies any change in sexual partners. No concerns for STDs. No fevers, no nausea, no vomiting, PE: Alert and oriented x3. Lungs: Clear to auscultation without rales, rhonchi, wheezes. Heart: Regular rate rhythm without murmurs, rubs, gallops. I have greeted and performed a rapid initial assessment of this patient. A comprehensive ED assessment and evaluation of the patient, analysis of test results and completion of the medical decision making process will be conducted by additional ED providers. I have specifically instructed the patient or family members with the patient to immediately return to any nursing staff should anything change in the patient's condition or with their chief complaint. TRAVEL OUTSIDE OF THE [place] IN LAST 30 DAYS: No - Related Data Allergies/Adverse Reactions: clavulanic acid [From Augmentin] Allergy (Severe, Verified 12/17/19 13:34) VOMITING baclofen Allergy (Verified 12/17/19 13:34) Hallucinations gabapentin Allergy (Verified 12/17/19 13:34) Hallucinations amoxicillin [From Augmentin] Adverse Reaction (Severe, Verified 12/17/19 13:34) VOMITING Past Medical History - Past Medical History Cardiac Medical History: Reports: Hx Hypercholesterolemia, Hx Hypertension Endocrine Medical History: Reports: Hx Diabetes Mellitus Type 2 Renal/ Medical History: Denies: Hx Peritoneal Dialysis Musculoskeltal Medical History: Reports Hx Arthritis - rheumatoid Past Surgical History: Reports: Hx Cardiac Surgery - cabg, Hx Cholecystectomy, Hx Hysterectomy, Hx Orthopedic Surgery - frozen shoulder-surg to release Physical Exam - Vital signs Vitals: Temp Pulse Resp BP Pulse Ox 98.2 F 85 16 138/79 H 100 03/07/20 16:58 03/07/20 16:58 03/07/20 16:58 03/07/20 16:58 03/07/20 16:58 Course - Vital Signs Vital signs: Temp Pulse Resp BP Pulse Ox 98.2 F 85 16 138/79 H 100 03/07/20 16:58 03/07/20 16:58 03/07/20 16:58 03/07/20 16:58 03/07/20 16:58 Doctor's Discharge - Discharge Referrals: LOCALMD,NO [Primary Care Provider] - Follow up as needed
[2020-03-07 19:10] LABS: APPEARANCE,URINE CLEAR; BILIRUBIN,URINE NEGATIVE (NEGATIVE); COLOR,URINE YELLOW; GLUCOSE, URINE >=500 mg/dL (NEGATIVE); KETONES,URINE NEGATIVE (NEGATIVE); LEUKOCYTE ESTERASE,URINE NEGATIVE (NEGATIVE); NITRITE,URINE NEGATIVE (NEGATIVE); PROTEIN,URINE NEGATIVE (NEGATIVE); URINE SPECIFIC GRAVITY 1.025; UROBILINOGEN,URINE NEGATIVE mg/dL (<2.0)
--- NOTE | 2020-03-07 21:31 | ER Document Report ---
ED General - General Chief Complaint: Vaginal Discharge Stated Complaint: VAGINAL PROBLEM Time Seen by Provider: 03/07/20 17:16 Primary Care Provider: CHARLES MAHARAJ [NO LOCAL MD] - Follow up as needed Mode of Arrival: Ambulatory Information source: Patient Notes: Patient is a 54-year-old female with history of type 2 diabetes coming in today with chief complaint of vaginal discharge. She states 2 weeks ago she had a uncontrollable episode of diarrhea that spread all over her private area. Since then she has had at first a grayish colored vaginal discharge followed by a bright yellow-colored vaginal discharge. She has had no abdominal pain. No fevers or chills. No nausea vomiting or diarrhea. She has had a DENISE/BSO. She does not recollect ever having any type of vaginal infection in the past. TRAVEL OUTSIDE OF THE [place] IN LAST 30 DAYS: No - Related Data Allergies/Adverse Reactions: clavulanic acid [From Augmentin] Allergy (Severe, Verified 12/17/19 13:34) VOMITING baclofen Allergy (Verified 12/17/19 13:34) Hallucinations gabapentin Allergy (Verified 12/17/19 13:34) Hallucinations amoxicillin [From Augmentin] Adverse Reaction (Severe, Verified 12/17/19 13:34) VOMITING Past Medical History - General Information source: Patient - Social History Smoking Status: Never Smoker Family History: Reviewed & Not Pertinent - Past Medical History Cardiac Medical History: Reports: Hx Hypercholesterolemia, Hx Hypertension Endocrine Medical History: Reports: Hx Diabetes Mellitus Type 2 Renal/ Medical History: Denies: Hx Peritoneal Dialysis Musculoskeletal Medical History: Reports Hx Arthritis - rheumatoid Past Surgical History: Reports: Hx Cardiac Surgery - cabg, Hx Cholecystectomy, Hx Hysterectomy, Hx Orthopedic Surgery - frozen shoulder-surg to release Review of Systems - Review of Systems Notes: Constitutional: No fevers. No chills. EENT: No eye redness. No eye pain. No ear pain. No sore throat. Cardiovascular: No chest pain. No palpitations. Respiratory: No cough. No shortness of breath. No respiratory distress. Gastrointestinal: No abdominal pain. No nausea, vomiting, or diarrhea. Genitourinary: Atraumatic. No lesions. No pain. Positive for vaginal discharge Musculoskeletal: Atraumatic. No swelling. No deformities. Skin: No rash or lesions. Lymphatic: No swollen lymph nodes. Neurologic: No headache. No syncope. Psychiatric: No suicidal or homicidal ideation. Physical Exam - Vital signs Vitals: Temp Pulse Resp BP Pulse Ox 98.2 F 85 16 138/79 H 100 03/07/20 16:58 03/07/20 16:58 03/07/20 16:58 03/07/20 16:58 03/07/20 16:58 - Notes Notes: General: Well-developed, well-nourished. In no acute distress. Non-toxic appearing. Cardiac: Well-perfused. Regular rate and rhythm. No murmurs, rubs, or gallops. Pulmonary: No respiratory distress. No cyanosis. Bilateral lung pelaez are clear to auscultation. Abdominal: Non-distended. Non-rigid. Bowels sounds are present in all four quadrants. No guarding or rebound. HEENT: Head is atraumatic. Conjunctivae not reddened. No tearing. PERRL. EOMI. Orbits atraumatic. No periorbital swelling or erythema. Oropharynx is without erythema, swelling, or exudates. Neck: Supple. No adenopathy. No meningismus. Dermatologic: Warm with good turgor. No rash. Atraumatic. Chest: Atraumatic. No chest wall tenderness to palpation. Musculoskeletal: Moves all extremities well. No range of motion deficits. no muscular or joint tenderness. No paraspinal muscle tenderness. no midline spinal tenderness or step-off. Genitourinary: Chaperoned by female PCT. External genitalia normal. Speculum exam reveals a bright yellow color vaginal discharge. Uterus surgically absent. Neurologic: No gross neurologic deficits. Psychiatric: Normal mood. Course - Re-evaluation Re-evalutation: 03/07/20 22:08 Vaginal culture is still pending. Wet mount reveals no trichomonas or yeast. She does have quite a few epithelials with bacteria. Given her large amount of vaginal discharge, will start her on prescription for Flagyl treating for BV. - Vital Signs Vital signs: Temp Pulse Resp BP Pulse Ox 97.6 F 73 18 138/73 H 100 03/07/20 19:38 03/07/20 19:38 03/07/20 19:38 03/07/20 19:38 03/07/20 19:38 - Laboratory Laboratory results interpreted by me: 03/07/20 17:42 Urine Glucose (UA) >=500 H Discharge - Discharge Clinical Impression: Bacterial vaginosis Condition: Good Disposition: HOME, SELF-CARE Instructions: Vaginosis, Bacterial ([facility]) Additional Instructions: Take antibiotics twice a day for 1 week as directed. Do not consume alcohol during this period. Do not take bubble baths or clean your private area with strongly scented soaps or lotions. In your diet, add yogurts and sour cream to help to replenish your good bacterial vaginal colony. Please [facility] with [facility]. Prescriptions: Metronidazole [Flagyl 500 mg Tablet] 500 mg PO BID #14 tablet
[2020-03-07 21:36] LABS: BACTERIA (WET MOUNT) 4+ BACTERIA SEEN; T.VAGINALIS (WET MOUNT) NO TRICHOMONAS SEEN; WBCS (WET MOUNT) 1+ WBCS SEEN; YEAST (WET MOUNT) NO YEAST SEEN
[2020-03-07 21:37] LABS: EPITHELIALS (WET MOUNT) 4+ EPITHELIALS SEEN; RBCS (WET MOUNT) NO RBCS SEEN
[2020-03-07] MEDS ORDERED: METRONIDAZOLE 500 MG TABLET PO ONE (22:13)
[2020-03-07 22:29] VITALS: BP 136/83
== END 2020-03-07 22:30 | disposition home or self-care (01) ==
LOC: ER 16:53
DX: N76.0 Acute vaginitis (principal); B96.89 Other specified bacterial agents as the cause of diseases classified elsewhere; Z88.8 Allergy status to other drugs, medicaments and biological substances; Z88.0 Allergy status to penicillin; I10 Essential (primary) hypertension; E11.9 Type 2 diabetes mellitus without complications
CPT/HCPCS: 99283; 87070; 87205; 87210; 81001; A9270; 36415